=== PATIENT | male | born 1985 | race Caucasian/White ===

== ENCOUNTER 2018-02-24 16:34 | Emergency (ER) | payer OTHER ==
[2018-02-24] MEDS ORDERED: DIPH/PERTUSS(ACELL)/TETANUS VAC/PF 0.5 ML SYR (>=10YO) IM ONE (17:42)
[2018-02-24] MEDS ORDERED: OXYCODONE-ACETAMINOPHEN 5-325 MG TABLET PO ONE (17:43)
--- NOTE | 2018-02-24 17:44 | ER Document Report ---
ED Medical Screen (RME) - General Chief Complaint: Finger Injury Stated Complaint: RIGHT FINGER INJURY Time Seen by Provider: 02/24/18 17:42 Mode of Arrival: Ambulatory Information source: Patient Notes: 32-year-old man presents to the emergency room with a crush injury to the right fourth finger. He does not know when his last tetanus was. TRAVEL OUTSIDE OF THE [place] IN LAST 30 DAYS: No - Related Data Allergies/Adverse Reactions: No Known Allergies Allergy (Verified 02/24/18 16:35) Past Medical History - Social History Chew tobacco use (# tins/day): No Frequency of alcohol use: Occasional Drug Abuse: None Renal/ Medical History: Denies: Hx Peritoneal Dialysis Past Surgical History: Reports: Hx Appendectomy Physical Exam - Vital signs Vitals: Temp Pulse Resp BP Pulse Ox 98.0 F 100 16 145/97 H 98 02/24/18 16:39 02/24/18 16:39 02/24/18 16:39 02/24/18 16:39 02/24/18 16:39 Course - Vital Signs Vital signs: Temp Pulse Resp BP Pulse Ox 98.0 F 100 16 145/97 H 98 02/24/18 16:39 02/24/18 16:39 02/24/18 16:39 02/24/18 16:39 02/24/18 16:39
--- NOTE | 2018-02-24 18:25 | RADIOLOGY REPORT (SQ) ---
EXAM DESCRIPTION: FINGER RIGHT COMPLETED DATE/TIME: 02/24/2018 6:14 pm REASON FOR STUDY: crush COMPARISON: None. EXAM PARAMETERS: NUMBER OF VIEWS: Three views. TECHNIQUE: AP, lateral and oblique radiographic images acquired of the right hand. LIMITATIONS: None. FINDINGS: MINERALIZATION: Normal. BONES: No dislocation. Comminuted distal tuft fracture of the right 4th distal phalanx. No other fracture identified. JOINTS: No effusion. SOFT TISSUES: Moderate soft tissue swelling. No radiopaque foreign body. OTHER: No other significant finding. IMPRESSION: Comminuted distal tuft fracture of the right 4th distal phalanx. TECHNICAL DOCUMENTATION: JOB ID: [id number] [id number] [email or web address] Rights Reserved Reading location - IP/workstation name: [facility]
[2018-02-24] MEDS ORDERED: CEPHALEXIN 500 MG CAPSULE PO ONE (18:37)
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
[2018-02-24 19:05] VITALS: BP 142/91
== END 2018-02-24 19:11 | disposition home or self-care (01) ==
LOC: ER 16:34
DX: S67.194A Crushing injury of right ring finger, initial encounter (principal); S62.634B Displaced fracture of distal phalanx of right ring finger, initial encounter for open fracture; W23.0XXA Caught, crushed, jammed, or pinched between moving objects, initial encounter; Y93.89 Activity, other specified; Y99.0 Civilian activity done for income or pay; F17.200 Nicotine dependence, unspecified, uncomplicated
CPT/HCPCS: 99283